=== PATIENT | male | born 1985 | race Caucasian/White ===

== ENCOUNTER 2022-08-22 07:48 | Outpatient (REF) | payer OTHER, SELFPAY ==
--- NOTE | ~2022-08-22 | XR_ITS ---
EXAMINATION: XR CERVICAL SPINE CLINICAL INFORMATION: Pain COMPARISON: None available. TECHNIQUE: 5 views of the cervical spine were obtained. FINDINGS: Bone alignment is normal. No fracture or dislocation. Normal disc spaces. Right-sided neuroforaminal narrowing from bony osteophyte at C4-C5 and C5-C6. Mild left-sided neuroforaminal bony osteophyte at C5-C6. Prevertebral soft tissues are normal. XR/XR cervical spine 4V IMPRESSION: Mild neuroforaminal narrowing from bony osteophyte, right greater than left.
--- NOTE | ~2022-08-22 | XR_ITS ---
EXAMINATION: XR SACROILIAC JOINTS CLINICAL INFORMATION: Low back pain COMPARISON: None available. TECHNIQUE: 3 views of the sacroiliac joints FINDINGS: The sacroiliac joints are normal. No evidence of erosive or proliferative arthritis. No fracture or dislocation. Prominent lowest lumbar right transverse process and pseudoarticulation with the right side of the sacrum. XR/XR sacroiliac joint min 3V IMPRESSION: Normal sacroiliac joints. Prominent right lowest lumbar transverse process and pseudoarticulation with the right side of the sacrum.
[2022-08-22 08:46] LABS: MANUAL DIFF FLAG NO
[2022-08-22 09:11] LABS: Basophils Percent Auto 0.5 % (0-2); Eosinophils Absolute Auto 0.2 X10*3/uL (0.0-0.4); Eosinophils Percent Auto 2.5 % (0-4); Hematocrit 43.1 % (42.0-52.0); Hemoglobin 14.7 g/dl (14.0-18.0); Imm Gran Abs Auto 0.02 X10*3/uL (0.00-0.03); Imm Gran Pct Auto 0.3 % (0.0-0.4); Lymphocytes Absolute Auto 1.5 X10*3/uL (1.2-4.9); Lymphocytes Percent Auto 23.9 % (20-40); Mean Corpuscular HGB Conc 34.1 g/dl (31.0-36.0); Mean Corpuscular Hemoglobin 28.5 pg (27.0-33.0); Mean Corpuscular Volume 83.7 fL (80.0-98.0); Mean Platelet Volume 10.6 fL (9.4-12.4); Monocytes Absolute Auto 0.5 X10*3/uL (0.1-1.2); Monocytes Percent Auto 7.3 % (2-11); Neutrophils Absolute Auto 4.2 x10*3/uL (2.0-8.3); Neutrophils Percent Auto 65.5 % (45-73); Platelet Count 277 X10*3/uL (160-400); Red Blood Count 5.15 X10*6/uL (4.60-5.80); Red Cell Distribution Width 13.2 % (11.0-16.0); White Blood Count 6.4 X10*3/uL (4.8-10.8)
[2022-08-22 09:44] LABS: Appearance Urine Clear; Color Urine Yellow; Glucose Urine UA Negative (Negative); Leukocyte Esterase Urine Negative (Negative); Nitrite Urine Negative (Negative); PH 6.5 (5.0-9.0); Specific Gravity - Urine 1.015 (1.005-1.025); Urine Blood Negative (Negative); Urine Ketones Negative (Negative); Urine Protein Negative (Neg-Trace)
[2022-08-22 09:51] LABS: Erythrocyte Sedimentation Rate 5 MM/HR (0-15)
[2022-08-22 09:54] LABS: Bacteria Urine None Seen (None Seen); Hyaline Casts Urine 0-2 /LPF (0-2); RBC Urine 0-2 /HPF (0-2); Squamous Epithelial Cell Urine 0-2 /HPF (0-2); WBC Urine 0-5 /HPF (0-5)
[2022-08-22 10:03] LABS: Alanine Aminotransferase 44 U/L (0-40); Albumin Level 4.2 g/dL (3.5-5.0); Alkaline Phosphatase 58 U/L (39-117); Anion Gap 11 (12-20); Aspartate Amino Transferase 24 U/L (5-37); Bilirubin Total 0.5 mg/dL (0.0-1.0); Blood Urea Nitrogen 15 mg/dL (9-16); C Reactive Protein 0.76 mg/dL (< or = 0.50); Calcium 9.4 mg/dL (8.4-10.2); Carbon Dioxide 23 mmol/L (22-29); Chloride 110 mmol/L (96-108); Estimated Glomerular Filt Rate > 60; Glucose Random 116 mg/dL (60-115); Potassium 4.1 mmol/L (3.3-5.1); Sodium 140 mmol/L (135-145); Total Protein 6.4 g/dL (6.5-8.0)
[2022-08-22 10:13] LABS: Rheumatoid Factor < 13.0 IU/mL (<15.0)
[2022-08-22 10:58] LABS: Creatinine Urine 112.32 mg/dL; Total Protein Urine Random < 7 mg/dL (<12)
[2022-08-23 04:37] LABS: HBS Num1 > 1000.00 mIU/mL (0-7.99); HBc Num1 0.05 S/CO (0.00-0.79); HBsAGNum1 0.29 S/CO (0.00-0.99); Hepatitis A Antibody IgM 0.18 Index (0-0.79); Hepatitis B Core Antibody Nonreactive (Nonreactive); Hepatitis B Surface Antigen Negative (Negative); ~HepC Num1 0.08 S/CO (0.00-0.79); ~Hepatitis A Antibody IgM Nonreactive (Nonreactive); ~Hepatitis B Surface Antibody REACTIVE (Nonreactive); ~Hepatitis C Antibody Nonreactive (Nonreactive)
[2022-08-23 18:44] LABS: Complement C3 126 mg/dL (82-185)
[2022-08-24 16:14] LABS: Cyclic Citrullinated Peptide <16 UNITS
[2022-08-24 16:44] LABS: Anti DNA DS Antibody 1 IU/mL; Antibody to SS-A Antigen <1.0 NEG AI (<1.0 NEG); Antibody to SS-B Antigen <1.0 NEG AI (<1.0 NEG); SM/Ribonucleoprotein Ab <1.0 NEG AI (<1.0 NEG); Smith Protein <1.0 NEG AI (<1.0 NEG)
[2022-08-24 23:24] LABS: Prot Elec - Alpha1 0.3 g/dL (0.2-0.3); Prot Elec - Alpha2 0.6 g/dL (0.5-0.9); Prot Elec - Beta 1 0.4 g/dL (0.4-0.6); Prot Elec - Beta 2 0.3 g/dL (0.2-0.5); Prot Elec - Gamma 0.7 g/dL (0.8-1.7); Prot Elec - Total Protein 6.4 g/dL (6.1-8.1)
[2022-08-29 10:18] LABS: IgA 126 mg/dL (47-310); IgG 734 mg/dL (600-1640); IgM 161 mg/dL (50-300)
== END 2022-08-22 07:49 | disposition home or self-care (01) ==
LOC: HO.LAB 07:48
PROVIDERS: PCP Nurse Practitioner Family; Visit Provider Student in an Organized Health Care Education/Training Program
DX: M06.9 Rheumatoid arthritis, unspecified (principal); M32.9 Systemic lupus erythematosus, unspecified; M54.50 Low back pain, unspecified; M54.2 Cervicalgia; M25.50 Pain in unspecified joint; M25.561 Pain in right knee; R76.8 Other specified abnormal immunological findings in serum; G89.29 Other chronic pain; Z11.59 Encounter for screening for other viral diseases; Z79.899 Other long term (current) drug therapy; Z72.89 Other problems related to lifestyle
CPT/HCPCS: 36415; 72050; 72202; 80053; 81001; 82784; 84156; 84165; 85025; 85652; 86140; 86160; 86200; 86225; 86235; 86334; 86431; 86704; 86706; 86709; 86803; 87340; 99202

== ENCOUNTER 2022-10-24 07:45 | Outpatient (AMB) | payer OTHER, SELFPAY ==
--- NOTE | 2022-10-24 07:46 | A.OFFVIS_ITS ---
Intake Vital Signs 10/24/22 07:47 Height 5 ft 8.5 in Weight 228 lb 9.91 oz BMI 34.3 BP 136/72 Blood Pressure Location Rt brachial Position Sitting Pulse 89 Pulse Source Pulse Oximeter Temp 97.4 F Temp Source Skin Pulse Oximetry (%) 98 Intake Visit Reasons: HLA b27 Intake Note: Pt seen today for follow up. 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 Feeling about the same overall. States that generally moving around helps his back pain. Gets intermittent right wrist and right 3rd finger swelling. Initial history: This is a 36-year-old male who [facility]. Patient states that since 2012 he started having left knee pain as well as lower back pain. He was evaluated by a disk recordist and was told that he likely has fibromyalgia. For his knee pain he was told he likely has slippage of his left kneecap. His back pain however has been progressively worse. He states that he has lower central back pain. Pain is generally worse in the morning associated with morning stiffness lasting from 5 minutes to 1 hour. Not improved with NSAIDs. Equivocal response to stretches and hot shower. He is unaware of any history of uveitis. Never had a colonoscopy. No known family history of psoriasis. States that his maternal aunt may have SLE. Denies history of DVT. COUNTS INCLUDE 234 BEDS AT THE [facility] Medical History Back pain of thoracolumbar region Generalized anxiety disorder History of migraine headaches HLA B27 (HLA B27 positive) Positive JAIME (antinuclear antibody) Post traumatic stress disorder (PTSD) Primary osteoarthritis, unspecified site Surgical History H/O hemorrhoidectomy Family History Mother No problems noted. Father Cancer Family/Other Lupus Social History Alcohol intake: current Alcohol intake frequency: holidays/special occasions only Patient Tobacco Use Status: Former Tobacco user Quit Date: 2018 Current occupational status: employed Current occupation: works in computer & phone repair Review of [employer] [facility] [place] pain Physical Exam Vital Signs: Last Vital Signs Temp 97.4 F 10/24/22 07:47 Pulse 89 10/24/22 07:47 BP 136/72 10/24/22 07:47 Pulse Ox 98 10/24/22 07:47 BMI result Body Mass Index 34.3 Const General: cooperative, healthy appearing and comfortable Nutritional Appearance: obese Orientation/consciousness: patient oriented x3 Limitations: no limitations HEENT Head: Yes normocephalic and Yes atraumatic Resp Effort & Inspection: normal respiratory effort and able to speak in complete sentences Neuro General: patient oriented x3 Extrem Other: Mild swelling of right wrist, mild right wrist tenderness Right 2nd extensor tendon tenderness Otherwise no swollen or tender joints of both hands No nail pitting Normal range of motion of elbows and shoulders. Bilateral knee crepitus Bilateral knee pain with full flexion, worse on the left. Alfred test 10-16 cm normal lateral flexion test bilaterally Negative straight leg raise test bilaterally negative REJI test bilaterally Results Reviewed Results Reviewed: Labs 2021 CRP 0.7 (<0.5) RF negative HLA B27 positive JAIME 1-80 speckled Assessment & Plan Assessment & Plan (1) Low back pain, unspecified: Code(s): M54.50 - Low back pain, unspecified Qualifiers: Chronicity: chronic Back pain laterality: midline Sciatica presence: without sciatica Qualified Code(s): M54.50 - Low back pain, unspecified; G89.29 - Other chronic pain Plan: This is a 36-year-old male who [facility]. Labs showed positive HLA B27 and elevated inflammatory markers. SI joint x-rays negative for sacroiliitis. Patient continues to have low back pain with features of inflammatory back pain. Will check SI joint MRIs to evaluate for sacroiliitis. Follow-up in 2 months (2) Positive JAIME (antinuclear antibody): Comment: 2021: 1:80 speckled Code(s): R76.8 - Other specified abnormal immunological findings in serum Plan: No clinical signs of SLE as well as comprehensive sub serologies. Plan I spent 26 minutes reviewing patient's chart, evaluating patient, ordering diagnostic workup, counseling patient and documenting in the chart Orders: Orders MR sacroiliac joint MICHAEL wo con Today M54.50 - Low back pain, unspecified, Z15.89 - Genetic susceptibility to other disease Coding Level of Care Code Est Pt Level 4 (27898) Diagnoses Low back pain, unspecified M54.50; G89.29 Chronicity: chronic Back pain laterality: midline Sciatica presence: without sciatica Positive JAIME (antinuclear antibody) R76.8
[2022-10-24 07:47] VITALS: BP 136/72; PULSE 89; TEMP 36.3; O2SAT 98; BMI 34.3
== END 2022-10-24 08:02 | disposition home or self-care (01) ==
PROVIDERS: PCP Nurse Practitioner Family; Visit Provider Student in an Organized Health Care Education/Training Program
DX: M54.50 Low back pain, unspecified (principal); G89.29 Other chronic pain; R76.8 Other specified abnormal immunological findings in serum
CPT/HCPCS: 99214

== ENCOUNTER → 2022-10-24 07:45 | Outpatient (BNVA) | payer OTHER, SELFPAY | PROVIDERS: PCP Nurse Practitioner Family; Visit Provider Student in an Organized Health Care Education/Training Program | DX: M54.50 Low back pain, unspecified (principal); R76.8 Other specified abnormal immunological findings in serum; G89.29 Other chronic pain | CPT/HCPCS: 99212 ==

== ENCOUNTER 2022-11-20 14:15 | Outpatient (REF) | payer OTHER, SELFPAY ==
--- NOTE | ~2022-11-20 | MR_ITS ---
EXAMINATION: MR SACROILIAC JOINTS BILATERAL WITHOUT CONTRAST CLINICAL INFORMATION: Lower back pain. Evaluate for sacroiliitis. COMPARISON: Sacroiliac joint radiographs dated 08/22/2022. TECHNIQUE: Multisequence MR imaging of the bilateral sacroiliac joints was obtained without contrast on a high-field strength scanner. FINDINGS: BONE: Unremarkable bilateral sacroiliac joints. No significant joint space narrowing or marginal osteophytes. No marrow edema, periarticular erosion, or joint effusion to suggest acute sacroiliitis. Prominence of the right L5 transverse process with pseudoarthrosis at the proximal aspect of the right sacral ala. There is Castellvi type IIA transitional anatomy at the lumbosacral junction. No marrow edema or evidence of acute stress reaction or fracture. No concerning lytic or blastic osseous lesion. MUSCLES/TENDONS: Intact. No edema or evidence of acute muscle or tendon injury. INTRAPELVIC STRUCTURES: Unremarkable. SOFT TISSUES: No soft tissue mass or fluid collection. MR/MR sacroiliac joint MICHAEL wo con IMPRESSION: 1. No evidence of acute sacroiliitis. 2. Prominence of the right L5 transverse process with pseudoarthrosis at the proximal aspect of the right sacral ala. Castellvi type IIA transitional anatomy at the lumbosacral junction.
== END 2022-11-20 14:16 | disposition home or self-care (01) ==
LOC: HO.MRI 14:15
PROVIDERS: PCP Nurse Practitioner Family; Visit Provider Student in an Organized Health Care Education/Training Program
DX: M54.50 Low back pain, unspecified (principal); Z15.89 Genetic susceptibility to other disease
CPT/HCPCS: 72195